=== PATIENT | female | born 1950 | race Caucasian/White ===

== ENCOUNTER 2017-06-28 16:34 | Emergency (ER) | payer MEDICARE, MEDICAID ==
[~2017-06-28] VITALS: Ht 160 cm; Wt 85.0 kg
[~2017-06-28 16:34] MED LIST: ADV50250 IH; ALBU18HF2 IH; ALBU2.5V10; ENOX40DI11 SQ; ESZO2TAB22 PO; FLUO40CA10 PO; HYDR-3972 PO; LEVO125T PO; LISI10TA4 PO; OMEP20TA5 PO; SUMA25TA35 PO; WALKERFR
[2017-06-28 17:07] LABS: BASOPHILS % (AUTO) 0.4 % (0-1); EOSINOPHILS # (AUTO) 0.1 X10'3 (0-0.9); EOSINOPHILS % (AUTO) 1.4 % (0-6); HEMATOCRIT 40.7 % (35.0-45.0); HEMOGLOBIN 13.8 g/dl (12.0-16.0); LYMPHOCYTES # (AUTO) 2.1 X10'3 (1.1-4.8); LYMPHOCYTES % (AUTO) 28.9 % (21-51); MEAN CORPUSCULAR HEMOGLOBIN 28.3 PG (27.0-31.0); MEAN CORPUSCULAR HGB CONC 33.9 % (33.0-36.5); MEAN CORPUSCULAR VOLUME 83.6 FL (78-98); MEAN PLATELET VOLUME 7.4 FL (7.4-10.4); MONOCYTES # (AUTO) 0.5 X10'3 (0-0.9); MONOCYTES % (AUTO) 6.8 % (2-12); NEUTROPHILS # (AUTO) 4.5 X10'3 (1.8-7.7); NEUTROPHILS % (AUTO) 62.5 % (42-75); PLATELET COUNT 247 X10'3 (140-440); RED BLOOD COUNT 4.87 X10'6 (4.20-5.60); RED CELL DISTRIBUTION WIDTH 13.7 % (11.5-14.5); WHITE BLOOD COUNT 7.3 X10'3 (4.5-11.0)
[2017-06-28 17:33] LABS: ALANINE AMINOTRANSFERASE 42 U/L (12-78); ALBUMIN 3.6 G/DL (3.4-5.0); ALKALINE PHOSPHATASE 75 IU/L (46-116); ANION GAP 7 (8-16); ASPARTATE AMINO TRANSFERASE 21 U/L (10-37); BILIRUBIN,TOTAL 0.2 MG/DL (0.1-1.0); BLOOD UREA NITROGEN 15 MG/DL (7-18); BUN/CREATININE RATIO 15.3 (6.6-38.0); CALCIUM 9.2 MG/DL (8.5-10.1); CHLORIDE 108 MMOL/L (99-107); CREATININE 0.98 MG/DL (0.40-0.90); GLUCOSE 135 MG/DL (70-104); MAGNESIUM 1.7 MG/DL (1.5-2.4); POTASSIUM 4.1 MMOL/L (3.5-5.1); SODIUM 144 MMOL/L (135-145); TOTAL CARBON DIOXIDE 28.6 MMOL/L (24-32); TOTAL PROTEIN 7.2 G/DL (6.4-8.2); eGFR 57 ML/MIN
[2017-06-28] MEDS ORDERED: cloNIDine 0.1 mg tablet PO ONE (18:50)
[2017-06-28 19:45] VITALS: BP 193/85
== END 2017-06-28 19:49 | disposition home or self-care (01) ==
LOC: ER 16:35
DX: I10 Essential (primary) hypertension (principal); G89.29 Other chronic pain; Z79.899 Other long term (current) drug therapy
CPT/HCPCS: 36415; 71045; 80053; 83735; 83880; 84484; 85025; 93005; 99285

== ENCOUNTER 2018-10-26 05:14 | Day surgery (SDC) | payer MEDICARE, MEDICAID ==
[2018-10-22 15:36] LABS: BASOPHILS % (AUTO) 0.5 % (0-1); EOSINOPHILS # (AUTO) 0.2 X10'3 (0-0.9); EOSINOPHILS % (AUTO) 2.8 % (0-6); LYMPHOCYTES # (AUTO) 2.4 X10'3 (1.1-4.8); LYMPHOCYTES % (AUTO) 35.6 % (21-51); MEAN CORPUSCULAR HEMOGLOBIN 28.2 PG (27.0-31.0); MEAN CORPUSCULAR VOLUME 83.1 FL (78-98); MEAN PLATELET VOLUME 7.7 FL (7.4-10.4); MONOCYTES # (AUTO) 0.6 X10'3 (0-0.9); MONOCYTES % (AUTO) 8.4 % (2-12); NEUTROPHILS # (AUTO) 3.5 X10'3 (1.8-7.7); NEUTROPHILS % (AUTO) 52.7 % (42-75); PRE OP HEMATOCRIT 38.9 % (35.0-45.0); PRE OP HEMOGLOBIN 13.2 g/dL (12.0-16.0); PRE OP PLATELET COUNT 241 X10'3 (140-440); RED BLOOD COUNT 4.69 X10'6 (4.20-5.60); RED CELL DISTRIBUTION WIDTH 14.2 % (11.5-14.5)
[2018-10-22 15:51] LABS: ALBUMIN 3.7 G/DL (3.4-5.0); ALBUMIN/GLOBULIN RATIO 1.1 (1.1-1.5); ALKALINE PHOSPHATASE 83 IU/L (46-116); BLOOD UREA NITROGEN 12 MG/DL (7-18); BUN/CREATININE RATIO 11.3 (6.6-38.0); CALCIUM 8.4 MG/DL (8.5-10.1); CHLORIDE 104 MMOL/L (99-107); CREATININE 1.06 MG/DL (0.40-0.90); PRE OP ALT 48 U/L (30-65); PRE OP ANION GAP 8 (8-16); PRE OP AST 26 U/L (10-37); PRE OP BILIRUB, TOTAL 0.4 MG/DL (0.0-1.0); PRE OP GLUCOSE 150 MG/DL (70-104); PRE OP SODIUM 141 MMOL/L (135-145); TOTAL CARBON DIOXIDE 28.7 MMOL/L (24-32); eGFR 52 ML/MIN
[2018-10-22 15:55] LABS: PRE OP POTASSIUM 3.3 MMOL/L (3.4-5.1)
[~2018-10-26] VITALS: Ht 160 cm; Wt 90.1 kg
[~2018-10-26 05:14] MED LIST changes: -ALBU2.5V10; +ALEN40TA2 PO; +ASPI-842 PO; +ATOR40TA PO; +CHOL10002 PO; -ENOX40DI11 SQ; -ESZO2TAB22 PO; -FLUO40CA10 PO; -HYDR-3972 PO; +HYDR-4353 PO; +HYDR12.5 PO; +IBUP-1984 PO; +IPRA3AMP31 INH; -LISI10TA4 PO; +PREG50CA PO; +QUET50TA22 PO; -WALKERFR; +ZALE10CA PO
[2018-10-26] MEDS ORDERED: famotidine 20mg tablet PO ONE (05:30)
[2018-10-26] MEDS ORDERED: albuterol 2.5 MG/3 ML nebule NEB ONE (05:30)
[2018-10-26] MEDS ORDERED: ringers solution, lacted 1,000 ML IV SCH ×2 (05:30→06:57)
[2018-10-26] MEDS ORDERED: cefazolin/dext.iso 2gm/100 ML IV ONE (05:30)
[2018-10-26] MEDS ORDERED: FLUO40CA10 PO (05:58)
[2018-10-26 06:31] LABS: ISTAT HGB 13.3 g/dl (12.0-16.0); ISTAT IONIZED CALCIUM 1.22 mmol/L (1.03-1.32)
[2018-10-26] MEDS ORDERED: BUPIVAcaine/PF 2.5mg/ml (0.25%) 10ml vial ONE (06:44)
[2018-10-26] MEDS ORDERED: triamcinolone acetonide 40mg/ml inj ONE (06:44)
[2018-10-26] MEDS ORDERED: LIDOcaine 0.5% (5mg/ml) 50ml vial ONE (06:56)
[2018-10-26] MEDS ORDERED: labetalol 20mg/4ml (5mg/ml) syringe IV PRN (07:00)
[2018-10-26] MEDS ORDERED: hydrALAZINE 20mg/ml inj. IV PRN (07:00)
[2018-10-26] MEDS ORDERED: morphine 4 MG/ML inj SYRINge IV PRN ×2 (07:00)
[2018-10-26] MEDS ORDERED: ondansetron/PF 4mg/2ml inj IV PRN (07:00)
[2018-10-26] MEDS ORDERED: fentaNYL/PF 50MCG/1 ML 2ML syringe IV PRN ×2 (07:00)
[2018-10-26] MEDS ORDERED: fentaNYL/PF 50MCG/1 ML 2ML syringe ONE (07:01)
[2018-10-26] MEDS ORDERED: propofol inj 20 ML IV ONE (07:02)
[2018-10-26] MEDS ORDERED: LIDOcaine 2% (20mg/ml) 5ml vial ONE (07:02)
[2018-10-26] MEDS ORDERED: MIDAZolam 5mg/5ml vial ONE (07:02)
[2018-10-26 07:16] VITALS: BP 154/90
[2018-10-26 07:19] VITALS: BP 154/90
[2018-10-26 07:35] VITALS: BP 148/83
--- NOTE | 2018-10-26 07:35 | NUR ---
Received from OR via BED, accompanied by Anesthesiologist DR TESFAYE and report given by Anesthesiolgist. PATIENT A&OX4, DENIES PAIN, V/S WNL, NEUROVASCULAR CHECKS INTACT, 20G PIV RUE, SCD ON, DRESSING TO LEFT WRIST CDI ELEVATED WITH ICEBAG APPLIED AND BANDAIDS TO RIGHT WRIST CDI.
[2018-10-26 07:45] VITALS: BP 139/78
[2018-10-26 07:55] VITALS: BP 128/72
[2018-10-26 08:05] VITALS: BP 122/69
--- NOTE | 2018-10-26 08:05 | NUR ---
PATIENT A&OX4, DENIES PAIN, V/S WNL, NEUROVASCULAR CHECKS INTACT, 20G PIV RUE D/C, SCD OFF, DRESSING TO LEFT WRIST CDI ELEVATED WITH ICEBAG APPLIED. I HAVE REVIEWED D/C INSTRUCTIONS WITH PATIENT AND FAMILY AND THEY HAVE VERBALIZED UNDERSTANDING. PATIENT D/C HOME WITH ALL BELONGINGS AND FAMILY GAVE TRANSPORT HOME.
== END 2018-10-26 08:05 | disposition home or self-care (01) ==
LOC: PAS 05:14
PROVIDERS: ATTEND Orthopaedic Surgery Hand Surgery
DX: G56.02 Carpal tunnel syndrome, left upper limb (principal); M65.321 Trigger finger, right index finger; M18.11 Unilateral primary osteoarthritis of first carpometacarpal joint, right hand; M19.90 Unspecified osteoarthritis, unspecified site; J44.9 Chronic obstructive pulmonary disease, unspecified; G43.909 Migraine, unspecified, not intractable, without status migrainosus; F41.8 Other specified anxiety disorders; K21.9 Gastro-esophageal reflux disease without esophagitis; Z91.013 Allergy to seafood; Z79.899 Other long term (current) drug therapy; Z98.890 Other specified postprocedural states
CPT/HCPCS: 20550; 20600; 36415; 64721; 80047; 80053; 85025; 85610; 85730; 93005; J2001; J2250; J2704; J3010; J3301; J3490; A6449; A7000; J7120

== ENCOUNTER 2019-12-27 06:35 | Day surgery (SDC) | payer MEDICARE, MEDICAID ==
[2019-12-20 14:52] LABS: BASOPHILS # (AUTO) 0.1 X10'3 (0-0.2); BASOPHILS % (AUTO) 0.7 % (0-1); EOSINOPHILS # (AUTO) 0.1 X10'3 (0-0.9); EOSINOPHILS % (AUTO) 1.3 % (0-6); LYMPHOCYTES # (AUTO) 2.8 X10'3 (1.1-4.8); LYMPHOCYTES % (AUTO) 34.6 % (21-51); MEAN CORPUSCULAR HEMOGLOBIN 28.2 PG (27.0-31.0); MEAN CORPUSCULAR HGB CONC 33.4 g/dL (33.0-36.5); MEAN CORPUSCULAR VOLUME 84.5 FL (78-98); MEAN PLATELET VOLUME 7.8 FL (7.4-10.4); MONOCYTES # (AUTO) 0.7 X10'3 (0-0.9); MONOCYTES % (AUTO) 8.2 % (2-12); NEUTROPHILS # (AUTO) 4.4 X10'3 (1.8-7.7); NEUTROPHILS % (AUTO) 55.2 % (42-75); PRE OP HEMATOCRIT 41.4 % (42.0-52.0); PRE OP HEMOGLOBIN 13.8 g/dL (14.0-17.9); PRE OP PLATELET COUNT 307 X10'3 (140-440); RED CELL DISTRIBUTION WIDTH 13.6 % (11.5-14.5)
[2019-12-20 15:09] LABS: ALBUMIN 3.9 G/DL (3.4-5.0); ALBUMIN/GLOBULIN RATIO 1.1 (1.1-1.5); ALKALINE PHOSPHATASE 93 IU/L (46-116); BLOOD UREA NITROGEN 20 MG/DL (7-18); BUN/CREATININE RATIO 16.3 (5.4-32.0); CALCIUM 9.5 MG/DL (8.5-10.1); CHLORIDE 105 MMOL/L (99-107); CREATININE 1.23 MG/DL (0.60-1.10); PRE OP ALT 28 U/L (30-65); PRE OP ANION GAP 7 (8-16); PRE OP AST 15 U/L (10-37); PRE OP BILIRUB, TOTAL 0.3 MG/DL (0.0-1.0); PRE OP GLUCOSE 101 MG/DL (70-104); PRE OP POTASSIUM 4.3 MMOL/L (3.4-5.1); PRE OP SODIUM 141 MMOL/L (135-145); TOTAL CARBON DIOXIDE 28.8 MMOL/L (24-32); TOTAL PROTEIN 7.6 G/DL (6.4-8.2); eGFR 59 ML/MIN
[~2019-12-27] VITALS: Ht 162.6 cm; Wt 81.8 kg
[2019-12-27] VITALS (7 sets, daily range): BP systolic 109–139; BP diastolic 64–76
[~2019-12-27 06:35] MED LIST changes: -ADV50250 IH; +BACL10TA PO; -CHOL10002 PO; +FLUO40CA10 PO; +FLUT250D INH; -IBUP-1984 PO; +LISI-600 PO; +METF500T PO; +NITR0.4T51 SL; +POTA10TA36 PO; +cefazolin/dext.iso 2gm/50ml 50 ML IV ONE; +famotidine 20mg tablet PO ONE; +ringers solution, lacted 1,000 ML IV SCH
[2019-12-27] MEDS ORDERED: BUPIVAcaine/PF 2.5mg/ml (0.25%) 10ml vial ONE ×2 (06:40→11:19)
[2019-12-27] MEDS ORDERED: LIDOcaine 0.5% (5mg/ml) 50ml vial ONE (08:59)
[2019-12-27] MEDS ORDERED: ringers solution, lacted 1,000 ML IV SCH (10:02)
[2019-12-27] MEDS ORDERED: ondansetron/PF 4mg/2ml inj IV PRN (10:05)
[2019-12-27] MEDS ORDERED: meperidine/PF 25mg/ml syringe IV PRN (10:05)
[2019-12-27] MEDS ORDERED: HYDROmorphone inj. 0.5 MG/0.5 ML DISP.SYRIN IV PRN ×2 (10:05)
[2019-12-27] MEDS ORDERED: acetaminophen 1,000mg/100ml IV 100 ML IV PRN (10:05)
[2019-12-27] MEDS ORDERED: morphine 2 MG/ML inj. syringe IV PRN (10:05)
[2019-12-27] MEDS ORDERED: morphine 4 MG/ML inj SYRINge IV PRN (10:05)
[2019-12-27] MEDS ORDERED: proCHLORperazine 10 MG/2 ml inj IV PRN (10:05)
[2019-12-27] MEDS ORDERED: midazolam 2 mg/2 ml injection ONE (10:38)
[2019-12-27] MEDS ORDERED: fentaNYL /PF 50mcg/ml 5ml ampule ONE (10:38)
[2019-12-27] MEDS ORDERED: propofol inj 20 ML IV ONE (10:58)
--- NOTE | 2019-12-27 11:33 | NUR ---
Received from OR via JAE, accompanied by Anesthesiologist DR JONES and report given by Anesthesiologist. PT DROWSY, DENIES PAIN, RIGHT HAND/WRIST MOST OF FOREARM W/BIAS DRSG COVERING INCISION/DRSG/SPLINT, FINGERS PWD, PRINCIPAL PLANNER 1-2 SECONDS. Addendum: 12/27/19 at 1150 by Yolie Redding RN Amended: Links added.
--- NOTE | 2019-12-27 12:33 | NUR ---
D/C INSTRUCTIONS GIVEN AND GONE OVER W/PT WHO VERBALIZED UNDERSTANDING, PT D/CD TO HOME VIA W/C TO PRIVATE VEHICLE W/O INCIDENT. Addendum: 12/27/19 at 1250 by Yolie Redding RN Amended: Links added.
== END 2019-12-27 12:33 | disposition home or self-care (01) ==
LOC: PAS 06:35
PROVIDERS: ATTEND Orthopaedic Surgery Hand Surgery
DX: M18.11 Unilateral primary osteoarthritis of first carpometacarpal joint, right hand (principal); E11.9 Type 2 diabetes mellitus without complications; J43.9 Emphysema, unspecified; E78.00 Pure hypercholesterolemia, unspecified; I10 Essential (primary) hypertension; G43.909 Migraine, unspecified, not intractable, without status migrainosus; G89.4 Chronic pain syndrome; E03.9 Hypothyroidism, unspecified; K21.9 Gastro-esophageal reflux disease without esophagitis; F32.9 Major depressive disorder, single episode, unspecified; I25.10 Atherosclerotic heart disease of native coronary artery without angina pectoris; F41.9 Anxiety disorder, unspecified; Z20.828 Contact with and (suspected) exposure to other viral communicable diseases; Z79.899 Other long term (current) drug therapy; Z79.82 Long term (current) use of aspirin; Z98.890 Other specified postprocedural states; Z96.642 Presence of left artificial hip joint; Z91.013 Allergy to seafood
CPT/HCPCS: 25310; 25447; 36415; 80053; 82948; 85025; 87635; 93005; A6222; J2001; J2250; J2704; J3010; J3490; J7120; A4215; A4618